=== PATIENT | male | born 2000 | race Caucasian/White ===

== ENCOUNTER 2020-04-19 17:45 | Outpatient (REF) | payer MEDICAID, SELFPAY | END 2020-04-19 17:46 | disposition home or self-care (01) | LOC: HO.LAB 17:45 | PROVIDERS: Visit Provider Internal Medicine | DX: Z20.828 Contact with and (suspected) exposure to other viral communicable diseases (principal) | CPT/HCPCS: C9803; U0003 ==

== ENCOUNTER 2020-06-28 12:12 | Outpatient (REF) | payer MEDICAID, SELFPAY | END 2020-06-28 12:13 | disposition home or self-care (01) | LOC: HO.LAB 12:12 | PROVIDERS: Visit Provider Internal Medicine | DX: Z20.822 Contact with and (suspected) exposure to COVID-19 (principal) | CPT/HCPCS: 36415; C9803; U0003 ==

== ENCOUNTER 2021-06-16 11:47 | Emergency (ER) | payer MEDICAID, SELFPAY ==
[2021-06-16 12:22] VITALS: BP 135/76; PULSE 72; RESP 18; TEMP 36.7; O2SAT 98; BMI 39.1
[2021-06-16 12:49] LABS: COVID-19 Test Negative (Negative); IDNOW Serial# 9DD0AD1C
--- NOTE | 2021-06-16 14:57 | ED.URI ---
HPI - URI/Sore Throat General Chief Complaint: Upper Respiratory Symptoms Stated Complaint: covid symptoms Time Seen by Provider: 06/16/21 14:55 Source: patient Mode of arrival: ambulatory Limitations: no limitations History of Present Illness MD elicited complaint: sore throat, nasal congestion and sinus pain Pertinent past history: other (COVID pos 06/06 2 vaccines) Onset (ago): day(s) (11 days ago) Consistency: intermittent Severity: moderate Description of mucous: clear Able to tolerate fluids by mouth: Yes Exacerbating factors: nothing Relieving factors: nothing Context: sick contacts Associated symptoms: headache and nasal congestion Treatments prior to arrival: none Related Data Previous Rx's Medication Instructions Recorded amoxicillin 875 mg-potassium 1 tab PO BID #14 tab 06/16/21 clavulanate 125 mg tablet (Augmentin) Allergies Allergy/AdvReac Type Severity Reaction Status Date / Time No Known Allergies Allergy Verified 06/16/21 12:22 Review of Systems Review of Systems: Constitutional : no Fever, positive Chills, positive fatigue, positive Malaise ENT/Mouth : positive sore throat, positive runny nose, pos nasal congestion Eyes: No Discharge Cardiovascular : No Chest Pain, No SOB Respiratory : No Cough, No Sputum Gastrointestinal : No Nausea, No Vomiting, No Diarrhea Genitourinary : No Dysuria, No Urinary Frequency Musculoskeletal : positive Myalgia Skin : No rash Neuro : No Headache PMFSH Past Medical History Medical History Asthma COVID-19 Social History Social History (Updated 06/16/21 @ 15:08 by Sue Arenas DO) Patient Tobacco Use Status: Never used Tobacco Physical Exam Vital Signs: Vital Signs: Last Vital Signs Temp 98.0 F 06/16/21 12:22 Pulse 72 06/16/21 12:22 Resp 18 06/16/21 12:22 BP 135/76 06/16/21 12:22 Pulse Ox 98 06/16/21 12:22 BMI result Body Mass Index 39.1 Appearance: Alert. Oriented X3. No acute distress. Eyes: Pupils equal, round and reactive to light. ENT: Pharynx normal. TTP bilateral max sinus ttp Neck: Normal inspection. Neck supple. CVS: Normal heart rate and rhythm. Pulses normal. Respiratory: No respiratory distress. Breath sounds normal. Abdomen: Soft and nontender. Skin: Skin warm and dry. Normal skin color. Normal skin turgor. Extremities: No lower extremity edema. No calf ttp Neuro: Oriented X 3. No motor deficit. No sensory deficit. MDM - URI/Sore Throat MDM Narrative Medical decision making narrative: 21 yo male 2 vaccines asthma hx 06/06 positive c/o today feeling nasal congestion at this time he is not toxic clear lungs likely residual sinusitis - will start on augmentin. Otherwise clear from COVID and symptoms resolved. Lab Data Labs: Lab Results 06/16/21 Range/Units 12:26 COVID-19 ([facility]) Negative (Negative) COVID-19 Clin Com See Note Discharge Plan Discharge Clinical Impression: Sinusitis Qualifiers: Sinusitis location: maxillary Chronicity: acute Recurrence: non-recurrent Qualified Code(s): J01.00 - Acute maxillary sinusitis, unspecified Patient Disposition: Home, Self-Care Instructions: Sinusitis (ED) Additional Instructions: return to ED for any worsening symptoms or concerns COVID TEST negative Prescriptions: New amoxicillin-pot clavulanate [Augmentin] 875-125 mg tablet 1 tab PO BID Qty: 14 RF: 0
--- NOTE | 2021-06-16 15:03 | PC.NURSE ---
evaluated by md simpson.
== END 2021-06-16 15:22 | disposition home or self-care (01) ==
LOC: HO.ED 15:20
PROVIDERS: Emergency Provider Emergency Medicine
DX: J01.00 Acute maxillary sinusitis, unspecified (principal); Z20.822 Contact with and (suspected) exposure to COVID-19; J45.909 Unspecified asthma, uncomplicated
CPT/HCPCS: 87635; 99283

== ENCOUNTER 2021-10-25 11:14 | Emergency (ER) | payer BC, SELFPAY ==
[2021-10-25 11:18] VITALS: BP 120/87; PULSE 84; RESP 18; TEMP 36; O2SAT 100; BMI 39.1
--- NOTE | 2021-10-25 12:29 | ED_ITS ---
HPI - General Adult General Chief complaint: Back Pain/Injury Stated complaint: back pains Time Seen by Provider: 10/25/21 12:07 Source: patient Mode of arrival: ambulatory Limitations: no limitations History of Present Illness HPI narrative: 21-year-old male presents for bilateral low back pain that is chronic. Patient lifts heavy boxes at work for the last 2 months has had mid lower back pain. Describes a dull discomfort, and pain when he extends his back and stretches. No numbness or tingling his legs, no radiation of pain No trauma, patient has no fevers, no history of eye injury drug use, no saddle paresthesias, no leg weakness, no urinary retention, no incontinence of bowel or bladder Related Data Previous Rx's Medication Instructions Recorded amoxicillin 875 mg-potassium 1 tab PO BID #14 tab 06/16/21 clavulanate 125 mg tablet (Augmentin) ketorolac 10 mg tablet 10 mg PO TID 5 Days #15 tab 10/25/21 methocarbamol 750 mg tablet 750 mg PO Q8H 5 Days #15 tab 10/25/21 Allergies Allergy/AdvReac Type Severity Reaction Status Date / Time No Known Allergies Allergy Verified 06/16/21 12:22 Review of Systems Constitutional: Constitutional: Denies body ache(s), Denies chills, Denies fatigue, Denies fever(s), Denies headache(s), Denies malaise and Denies weakness Eyes: Eyes: Denies diplopia ENT: Denies vertigo, Denies dizziness, Denies otalgia, Denies headache(s), Denies mouth pain, Denies post nasal drip, Denies sinus pain, Denies sinus pressure, Denies sore throat and Denies throat swelling Cardiovascular: Cardiovascular: Denies chest pain, Denies syncope, Denies leg edema, Denies lightheadedness, Denies Loss of Consciousness, Denies palpitations and Denies dyspnea Respiratory: Respiratory: Denies chest congestion, Denies cough and Denies dyspnea Gastrointestinal: Gastrointestinal: Denies abdominal pain, Denies hematochezia, Denies constipation, Denies fecal incontinence, Denies diarrhea and Denies vomiting Genitourinary: Genitourinary: Denies urinary hesitancy and Denies urinary incontinence Musculoskeletal: Musculoskeletal: Reports back pain, Denies muscle weakness, Denies numbness and Denies tingling Neurologic: Denies confusion, Denies vertigo, Denies dizziness, Denies syncope, Denies headache(s), Denies numbness, Denies tingling and Denies weakness Psychiatric: Psychiatric: Denies anxiety, Denies confusion and Denies depre ssion Endocrine: Endocrine: Denies fatigue and Denies palpitations Allergic/Immunologic: Allergic/Immunologic: Denies throat swelling PMFSH Past Medical History Medical History Asthma COVID-19 Social History Social History (Updated 06/16/21 @ 15:08 by Sue Arenas DO) Patient Tobacco Use Status: Never used Tobacco Advance Directives: No Advance Directives Information Provided: No Physical Exam ED Vital Signs: Vital Signs - 24 hr 10/25/21 11:18 Temperature 96.8 F Pulse Rate 84 Respiratory Rate 18 Blood Pressure 120/87 Pulse Oximetry 100 BMI result Body Mass Index 39.1 Const General: No confusion Nutritional Appearance: well nourished Orientation/consciousness: No confusion Limitations: no limitations Eyes Conjunctivae: conjunctivae normal Pupils: Equal, round and reactive pupils present EOM: EOMs intact bilaterally Neck Neck: Yes full ROM, Yes no lymphadenopathy and Yes supple Resp Effort & Inspection: normal respiratory effort and able to speak in complete sentences Auscultation: clear to auscultation bilaterally, no crackles, no rales, no rhonchi and no wheezes Cardio Rate: regular rate Rhythm: regular rhythm Heart sounds: S1 normal heart sound present and S2 normal heart sound present GI Inspection: Yes normal to inspection Palpation (GI): Soft to palpation, nontender, no guarding and not rigid Percussion: Yes normal to percussion Auscultation: normal bowel sounds Back/Spine/Pelvis Cervical Spine: normal cervical lordosis, cervical ROM normal, No Cervical spine tenderness, No step off deformity and No cervical ROM abnormal Thoracic/Lumbar Spine: straight leg raise negative bilaterally, No bend over test abnormal, No paraspinal muscle tenderness, No thoraco-lumbar ROM limited, thoraco-lumbar spasm bilaterally in the mid thoracic, No thoracic spinal tenderness and No lumbar spinal tenderness Pelvis: no pain with anterior-posterior compression and no pain with lateral compression Skin General skin exam: no rashes or lesions noted Neuro General: No confusion Cranial nerves: Yes Equal, round and reactive pupils present Extrem General: Yes normal to inspection and Yes full ROM Psych Appearance: grossly normal Affect: normal affect Attitude: cooperative Thought process: Normal thought process present Course Course Course Narrative: 21-year-old male with 2 months of back pain that has been worsening in the last few days. Patient lifts heavy boxes out his job. No red flag symptoms. On exam, patient is bilateral lower extremity pulses, sensation, motor strength, DTRs. Negative straight leg raise, no vertebral point tenderness on patient's spine. Will treat with ketorolac and Flexeril, return precautions of leg weakness, saddle paresthesias, bowel or bladder incontinence, fevers Patient's questions were answered Discharge Plan Discharge Clinical Impression: Back pain Patient Disposition: Home, Self-Care Instructions: Back Pain (ED) Additional Instructions: Please take ketorolac and methocarbamol that I prescribed to her pharmacy. Please take as prescribed for the next 5 days. As soon as her back is feeling better please stretch. All warm moist towel on your back or heating pad can also be helpful. Please do not take any ibuprofen containing products when you are taking the ketorolac. Please return to the emergency room if you have leg weakness, tingling in your groin, if you are incontinent of bowel or bladder, if you have fevers, or for any other new or concerning symptoms Prescriptions: New ketorolac 10 mg tablet 10 mg PO TID 5 Days Qty: 15 0RF methocarbamol 750 mg tablet 750 mg PO Q8H 5 Days Qty: 15 0RF No Action amoxicillin-pot clavulanate [Augmentin] 875-125 mg tablet 1 tab PO BID Qty: 14 0RF
[2021-10-25] MEDS: Cyclobenzaprine HCl 10 MG TABLET PO (12:40)
[2021-10-25] MEDS: Ketorolac Tromethamine 15 MG/ML VIAL IM (12:41)
== END 2021-10-25 13:30 | disposition home or self-care (01) ==
PROVIDERS: Emergency Provider Emergency Medicine
DX: M54.50 Low back pain, unspecified (principal)
CPT/HCPCS: 96372; 99283; 99284; J1885

== ENCOUNTER 2021-11-17 05:05 | Emergency (ER) | payer BC, SELFPAY ==
[2021-11-17 05:20] VITALS: BP 131/86; PULSE 76; RESP 16; TEMP 36.4; O2SAT 95
[2021-11-17 05:22] VITALS: PULSE 76; RESP 16; TEMP 36.4; O2SAT 95; BMI 39.8
--- NOTE | 2021-11-17 05:22 | ED_ITS ---
HPI - Back Pain/Injury General Chief Complaint: Extremity Injury, Upper Stated Complaint: lower back pain Time Seen by Provider: 11/17/21 05:22 Source: patient Mode of arrival: ambulatory Limitations: no limitations History of Present Illness HPI Narrative: Patient was moving water bottles at work complaining of lower back pain since yesterday no radiation of pain no paresthesia no motor weakness history of same few months ago patient ambulatory assert not in any distress Related Data Previous Rx's Medication Instructions Recorded amoxicillin 875 mg-potassium 1 tab PO BID #14 tabs 06/16/21 clavulanate 125 mg tablet (Augmentin) ketorolac 10 mg tablet 10 mg PO TID 5 days #15 tabs 10/25/21 methocarbamol 750 mg tablet 750 mg PO Q8H 5 days #15 tabs 10/25/21 ibuprofen 600 mg tablet 600 mg PO Q6H PRN pain #20 tabs 11/17/21 Allergies Allergy/AdvReac Type Severity Reaction Status Date / Time No Known Allergies Allergy Verified 06/16/21 12:22 Review of Systems Review of Systems: Yes all other systems are reviewed and are negative COUNT INCLUDES [facility] Past Medical History Medical History Asthma COVID-19 Social History Social History Patient Tobacco Use Status: Never used Tobacco Advance Directives: No Advance Directives Information Provided: No Physical Exam Vital Signs: Vital Signs: Last Vital Signs Temp 97.6 F 11/17/21 05:22 Pulse 76 11/17/21 05:22 Resp 16 11/17/21 05:22 BP 131/86 11/17/21 05:20 Pulse Ox 95 11/17/21 05:22 O2 Del Method 11/17/21 05:22 BMI result Body Mass Index 39.8 Const: General: comfortable and no acute distress Orientation/consciousness: patient oriented x3 HEENT: Head: Yes normal to inspection and Yes normocephalic Mouth: Normal oral and palatal mucosa present Resp: Effort & Inspection: normal respiratory effort Auscultation: clear to auscultation bilaterally Cardio: Rate: regular rate Rhythm: regular rhythm Heart sounds: S1 normal heart sound present and S2 normal heart sound present Back/Spine/Pelvis: Thoracic/Lumbar Spine: thoracic and lumbar spine normal to inspection, straight leg raise negative bilaterally, thoraco-lumbar spasm, No thoracic spinal tenderness and No lumbar spinal tenderness Neuro: General: patient oriented x3, gait normal and moves all extremities Discharge Plan Discharge Clinical Impression: Low back strain Patient Disposition: Home, Self-Care Instructions: Acute Low Back Pain (ED) Additional Instructions: Rest, ice, Ibuprofen for pain Prescriptions: New ibuprofen 600 mg tablet 600 mg PO Q6H PRN (Reason: pain) Qty: 20 0RF No Action amoxicillin-pot clavulanate [Augmentin] 875-125 mg tablet 1 tab PO BID Qty: 14 0RF ketorolac 10 mg tablet 10 mg PO TID 5 Days Qty: 15 0RF methocarbamol 750 mg tablet 750 mg PO Q8H 5 Days Qty: 15 0RF Stand Alone Forms: Work/School Release
[2021-11-17] MEDS: Ibuprofen 600 MG TABLET PO (05:58)
== END 2021-11-17 06:01 | disposition home or self-care (01) ==
PROVIDERS: Emergency Provider Internal Medicine
DX: S39.012A Strain of muscle, fascia and tendon of lower back, initial encounter (principal); J45.909 Unspecified asthma, uncomplicated; X50.9XXA Other and unspecified overexertion or strenuous movements or postures, initial encounter; Y93.9 Activity, unspecified; Y92.9 Unspecified place or not applicable; Y99.0 Civilian activity done for income or pay
CPT/HCPCS: 99283

== ENCOUNTER 2022-06-08 09:30 | Emergency (ER) | payer BC, SELFPAY ==
--- NOTE | ~2022-06-08 | XR_ITS ---
EXAMINATION: XR CHEST CLINICAL INFORMATION: Productive cough COMPARISON: Previous chest x-ray April 2015 TECHNIQUE: Frontal view of the chest was obtained. FINDINGS: No significant abnormality is noted involving the heart, lungs, mediastinum, bony thorax or soft tissues. XR/XR chest 1V IMPRESSION: Unremarkable examination.
[2022-06-08 09:32] VITALS: BP 140/90; PULSE 81; RESP 20; TEMP 36.7; O2SAT 98; BMI 39.9
--- NOTE | 2022-06-08 10:21 | ED.HA ---
HPI - Headache General Chief Complaint: Headache Stated Complaint: Migraine Time Seen by Provider: 06/08/22 10:21 Source: patient Mode of arrival: ambulatory History of Present Illness HPI Narrative: 22-year-old male with a past medical history of asthma presenting to the ED complaining of migraine headache x5 days with associated nasal congestion, rhinorrhea, and productive cough. Headache not maximal at onset. Admits daughter with recent fever. Denies known fever, ear pain, sore throat, SOB/CP, N/V, recent travel, vision change/loss, numbness/tingling, weakness MD elicited complaint: migraine Onset (ago): day(s) Related Data Previous Rx's Medication Instructions Recorded amoxicillin 875 mg-potassium 1 tab PO BID #14 tabs 06/16/21 clavulanate 125 mg tablet (Augmentin) ketorolac 10 mg tablet 10 mg PO TID 5 days #15 tabs 10/25/21 methocarbamol 750 mg tablet 750 mg PO Q8H 5 days #15 tabs 10/25/21 ibuprofen 600 mg tablet 600 mg PO Q6H PRN pain #20 tabs 11/17/21 ohugvqomme-unenewexbxwgn-jbmvblle 1 cap PO Q4-6H PRN headache #14 06/08/22 50 mg-300 mg-40 mg capsule caps (Fioricet) Allergies Allergy/AdvReac Type Severity Reaction Status Date / Time No Known Allergies Allergy Verified 06/16/21 12:22 Review of Systems Review of Systems: Constitutional: No Fever, No Chills, No Fatigue, No Malaise ENT/Mouth: No Ear Pain, + Nasal Congestion, No sore throat, + Rhinorrhea, No Swallowing Difficulty Eyes: No Eye Pain, No Swelling, No Redness, No Discharge, No Vision Changes Cardiovascular: No Chest Pain, No SOB, No Edema, No Palpitations Respiratory: + Cough, + Sputum, No Dyspnea Gastrointestinal: No Nausea, No Vomiting, No Diarrhea, No Constipation, No Abdominal pain Musculoskeletal: No joint pain, No Myalgias, No Joint Swelling Skin: No Skin Lesions, No rash Neuro: No Weakness, No Numbness, No Paresthesias, No Loss of Consciousness, No Dizziness, + Headache Yes all other systems are reviewed and are negative Constitutional: Constitutional: Reports as per HPI Neurologic: Denies Abnormal speech present [facility] Past Medical History Attestation statement: The following information was validated with the patient. Medical History Asthma COVID-19 Social History Social History Patient Tobacco Use Status: Never used Tobacco Advance Directives: No Advance Directives Information Provided: No Physical Exam Vital Signs: Vital Signs: Last Vital Signs Temp 98.0 F 06/08/22 09:32 Pulse 81 06/08/22 09:32 Resp 20 06/08/22 09:32 BP 140/90 H 06/08/22 09:32 Pulse Ox 98 06/08/22 09:32 O2 Del Method 06/08/22 09:32 BMI result Body Mass Index 39.9 Const: General: cooperative, healthy appearing and no acute distress Orientation/consciousness: patient oriented x3 Limitations: no limitations HEENT: Head: Yes normal to inspection and Yes atraumatic Ears: hearing grossly normal bilaterally, TM's normal bilaterally and mastoids normal General nose exam: Normal external nose present Face and sinus: Yes normal facial exam Throat: Yes posterior oropharynx normal, Yes tonsils normal, Yes uvula midline, No peritonsillar mass and No uvula laterally displaced Eyes: General: appearance normal, both eyes and all related structures Pupils: Equal, round and reactive pupils present EOM: EOMs intact bilaterally Neck: Neck: Yes normal visual inspection and Yes no meningeal signs Resp: Effort & Inspection: normal respiratory effort and no respiratory distress Auscultation: clear to auscultation bilaterally, no crackles, no rales and no rhonchi Cardio: Rate: regular rate Heart sounds: S1 normal heart sound present and S2 normal heart sound present GI: Inspection: Yes normal to inspection Skin: Rashes: no rashes Wounds: no wounds Neuro: General: patient oriented x3, gait normal, tone normal, moves all extremities, no meningeal signs, no focal motor deficits and CN's II-XI intact bilaterally Cranial nerves: Yes CN's II-XII intact bilaterally and Yes Equal, round and reactive pupils present Cognition (Neuro): normal cognition Speech: No Abnormal speech present Gait exam (Neuro): Normal gait present Motor exam (neuro): 5/5 motor strength present throughout and Pronator motor function not present Extrem: General: Yes normal to inspection Course Course Course Narrative: -COVID-19 and influenza negative -chest x-ray unremarkable. On re-evaluation patient reports symptomatic improvement. Results discussed with patient including worrisome signs and symptoms and strict return precautions, and when to return to the emergency department. They verbalized understanding and feel safe for discharge at this time. Medications Administered Discontinued Medications Generic Name Dose Route Start Last Admin Trade Name Claudia PRN Reason Stop Dose Admin Acetaminophen/Butalbital/Caffeine 1 tab 06/08/22 10:25 06/08/22 11:21 Butalb/Acetamin/Caff 50/325/40 Tablet PO 06/08/22 10:26 1 tab ONCE ONE Administration Ibuprofen 600 mg 06/08/22 10:25 06/08/22 11:21 Ibuprofen 600 Mg Tablet PO 06/08/22 10:26 600 mg ONCE ONE Administration Medical Decision Making Medical Decision Making MDM Narrative: 22-year-old male with a past medical history of asthma presenting to the ED complaining of migraine headache x5 days with associated nasal congestion, rhinorrhea, and productive cough. On exam VSS, NAD, nontoxic appearing, lungs CTA, no focal neuro deficits, ambulating with steady gait. Concern for viral illness vs migraine headache. Rule out pneumonia. Low suspicion for ICH/CVT or meningitis/encephalitis Plan: [id number] testing, CXR, Po Fioricet & Motrin, re-evaluate Please refer to course for remaining clinical decision making, interpretation of labs/imaging results, and discussions with consultants and/or family members. Differential Diagnosis Differential Diagnoses: The differential diagnosis associated with the presentation includes as above Lab Data Labs: Lab Results 06/08/22 06/08/22 Range/Units 10:47 10:47 COVID-19 ([facility]) Negative (Negative) COVID-19 Clin Com See Note Influenza Type A (J[facility]) Negative (Negative) Influenza Type B (JIAN) Negative (Negative) Influenza A & B Note See Note Discharge Plan Discharge Clinical Impression: Migraine Patient Disposition: Home, Self-Care Instructions: Migraine Headache (ED) Additional Instructions: You tested negative for COVID in the flu. Her x-ray was unremarkable. Continue home prescribed medications. Fioricet is a headache medication, please take as needed Be aware this medication as Tylenol mixed in, do not exceed 4 g of Tylenol in 1 day. You may also take Motrin. If symptoms persist or worsen you develop fever, persistent or worsening headache, weakness, shortness breath or chest pain return to the emergency department Prescriptions: New phuhwqjtep-aibheovjedulx-lqcc [Fioricet] 50-300-40 mg capsule 1 cap PO Q4-6H PRN (Reason: headache) Qty: 14 0RF No Action amoxicillin-pot clavulanate [Augmentin] 875-125 mg tablet 1 tab PO BID Qty: 14 0RF ketorolac 10 mg tablet 10 mg PO TID 5 Days Qty: 15 0RF methocarbamol 750 mg tablet 750 mg PO Q8H 5 Days Qty: 15 0RF ibuprofen 600 mg tablet 600 mg PO Q6H PRN (Reason: pain) Qty: 20 0RF Referrals: [place],[facility] [Primary Care Provider] - 5 days Stand Alone Forms: Work/School Release
[2022-06-08 11:11] LABS: COVID-19 Test Negative (Negative); IDNOW Serial# 16C4AD1C; IDNOW Serial# BCCEAD1C; Influenza A Negative (Negative); Influenza B2 Negative (Negative)
[2022-06-08] MEDS: Ibuprofen 600 MG TABLET PO (11:21)
[2022-06-08] MEDS: Butalb/Acetamin/Caff 50/325/40 TABLET 1 TAB PO (11:21)
== END 2022-06-08 12:28 | disposition home or self-care (01) ==
PROVIDERS: Physician Assistant; Emergency Provider Student in an Organized Health Care Education/Training Program
DX: G43.909 Migraine, unspecified, not intractable, without status migrainosus (principal); R06.02 Shortness of breath; Z20.822 Contact with and (suspected) exposure to COVID-19; Z79.899 Other long term (current) drug therapy
CPT/HCPCS: 71045; 87502; 87635; 99283

== ENCOUNTER 2022-10-30 05:00 | Emergency (ER) | payer BC, SELFPAY ==
[2022-10-30 05:08] VITALS: BP 136/88; PULSE 98; RESP 20; TEMP 36.6; O2SAT 96; BMI 38.0
[2022-10-30 05:23] LABS: Basophils Percent Auto 0.3 % (0-2); Eosinophils Absolute Auto 0.2 X10*3/uL (0.0-0.4); Eosinophils Percent Auto 3.4 % (0-4); Hematocrit 46.4 % (42.0-52.0); Hemoglobin 14.8 g/dl (14.0-18.0); Imm Gran Abs Auto 0.02 X10*3/uL (0.00-0.03); Imm Gran Pct Auto 0.3 % (0.0-0.4); Lymphocytes Absolute Auto 1.2 X10*3/uL (1.2-4.9); Lymphocytes Percent Auto 16.4 % (20-40); MANUAL DIFF FLAG NO; Mean Corpuscular HGB Conc 31.9 g/dl (31.0-36.0); Mean Corpuscular Hemoglobin 25.7 pg (27.0-33.0); Mean Corpuscular Volume 80.6 fL (80.0-98.0); Mean Platelet Volume 9.5 fL (9.4-12.4); Monocytes Absolute Auto 0.6 X10*3/uL (0.1-1.2); Monocytes Percent Auto 8.3 % (2-11); Neutrophils Percent Auto 71.3 % (45-73); Platelet Count 275 X10*3/uL (160-400); Red Blood Count 5.76 X10*6/uL (4.60-5.80); Red Cell Distribution Width 12.8 % (11.0-16.0); White Blood Count 7.1 X10*3/uL (4.8-10.8)
[2022-10-30 05:43] LABS: Alanine Aminotransferase 26 U/L (0-40); Albumin Level 4.7 g/dL (3.5-5.0); Alkaline Phosphatase 79 U/L (39-117); Anion Gap 14 (12-20); Aspartate Amino Transferase 20 U/L (5-37); Bilirubin Direct 0.5 mg/dL (0.0-0.5); Bilirubin Total 2.3 mg/dL (0.0-1.0); Blood Urea Nitrogen 13 mg/dL (9-16); Calcium 9.5 mg/dL (8.4-10.2); Carbon Dioxide 18 mmol/L (22-29); Chloride 109 mmol/L (96-108); Creatinine Clr Calc Pharmacy 164.6; Estimated Glomerular Filt Rate > 60; Glucose Random 107 mg/dL (60-115); Lipase 12 U/L (8-78); Potassium 3.9 mmol/L (3.3-5.1); Sodium 137 mmol/L (135-145); Total Protein 7.7 g/dL (6.5-8.0)
--- NOTE | 2022-10-30 07:03 | ED_ITS ---
HPI - General Adult General Chief complaint: Nausea/Vomiting/Diarrhea Stated complaint: Nausea, headaches sore muscles Time Seen by Provider: 10/30/22 07:02 Source: patient Mode of arrival: ambulatory Limitations: no limitations History of Present Illness HPI narrative: Patient is a 22-year-old male with no past medical history presenting to the emergency department with nausea, vomiting, and diarrhea since yesterday morning. He reports that his partner at home is sick with the same symptoms. He reports approximately 4 episodes of diarrhea per hour yesterday. He states that he was able to tolerate fluids this morning without vomiting. He denies any fevers. He reports generalized abdominal discomfort but denies any abdominal, back, or flank pain. He reports non-bloody, non-bilious emesis, denies coffee ground emesis, hematochezia or melena. He denies any prior abdominal surgeries. He denies chest pain or dyspnea. Denies headache. Denies dizziness, lightheadedness, syncope. Denies recent travel. Denies any new medications. Denies any dysuria, hematuria, or other urinary complaints. MD complaint: nausea, vomiting, diarrhea Onset (ago): day(s) Relieving factors: none Treatments prior to arrival: none Related Data Previous Rx's Medication Instructions Recorded amoxicillin 875 mg-potassium 1 tab PO BID #14 tabs 06/16/21 clavulanate 125 mg tablet (Augmentin) ketorolac 10 mg tablet 10 mg PO TID 5 days #15 tabs 10/25/21 methocarbamol 750 mg tablet 750 mg PO Q8H 5 days #15 tabs 10/25/21 ibuprofen 600 mg tablet 600 mg PO Q6H PRN pain #20 tabs 11/17/21 [id number]-[id number]-[id number] 1 cap PO Q4-6H PRN headache #14 06/08/22 50 mg-300 mg-40 mg capsule caps (Fioricet) ondansetron 4 mg disintegrating 4 mg PO Q8H PRN nausea and 10/30/22 tablet vomiting #12 tabs Allergies Allergy/AdvReac Type Severity Reaction Status Date / Time No Known Allergies Allergy Verified 10/30/22 05:11 Review of Systems Review of Systems: Yes all other systems are reviewed and are negative Constitutional: Constitutional: Reports as per HPI, Denies body ache(s), Denies chills, Denies excessive sweating, Denies fever(s) and Denies headache(s) Eyes: Eyes: Reports no additional eye complaints ENT: Reports system reviewed and no additional complaints, except as documented and Denies headache(s) Cardiovascular: Cardiovascular: Reports no additional cardiovascular complaints Respiratory: Respiratory: Reports no additional respiratory complaints Gastrointestinal: Gastrointestinal: Denies abdominal pain, Denies melena, Denies hematochezia, Denies coffee ground emesis, Denies constipation, Denies fecal incontinence, Reports diarrhea, Reports nausea, Reports vomiting and Denies hematemesis Genitourinary: Genitourinary: Reports no additional male genitourinary complaints Musculoskeletal: Musculoskeletal: Reports no additional musculoskeletal complaints Integumentary/Breasts: Skin/Breast: Reports system reviewed and no additional complaints, except as docu Neurologic: Reports system reviewed and no additional complaints, except as documented and Denies headache(s) Psychiatric: Psychiatric: Reports no additional psychiatric complaints Endocrine: Endocrine: Denies excessive sweating Hematologic/Lymphatic: Hematologic/Lymphatic: Reports no additional hematologic/lymphatic complaints Allergic/Immunologic: Allergic/Immunologic: Reports no additional allergic/immunologic complaints [facility] Past Medical History Medical History Asthma COVID-19 Social History Social History Alcohol intake: never Patient Tobacco Use Status: Never used Tobacco Smoked in Last 30 Days: No Use of substances other than those prescribed or required for medical reasons: No Advance Directives: No Advance Directives Information Provided: Yes Physical Exam ED Vital Signs: Vital Signs - 24 hr 10/30/22 05:08 10/30/22 07:12 Temperature 97.8 F 98.6 F Pulse Rate 98 90 Respiratory Rate 20 17 Blood Pressure 136/88 127/82 Pulse Oximetry 96 95 Oxygen Delivery Method Room Air Room Air BMI result Body Mass Index 38.0 Vital signs have been reviewed and appear to be correct. Blood pressure normal. Heart rate normal. Respiratory rate normal. Temperature normal. Oxygen saturation normal. Const General: cooperative, healthy appearing and no acute distress Orientation/consciousness: oriented to person, oriented to place, oriented to time and patient oriented x3 Limitations: no limitations HENMT Head: Yes normocephalic and Yes atraumatic Ears: external ears normal General nose exam: Normal external nose present Face and sinus: Yes face symmetric Mouth: Normal oral and palatal mucosa present, oropharynx normal and moist mucous membranes Throat: Yes uvula midline Eyes Pupils: Equal, round and reactive pupils present Neck Neck: Yes normal visual inspection and Yes supple Resp Effort & Inspection: normal respiratory effort and able to speak in complete sentences Auscultation: clear to auscultation bilaterally Cardio Rate: regular rate Rhythm: regular rhythm Heart sounds: S1 normal heart sound present and S2 normal heart sound present GI Inspection: Yes normal to inspection Palpation (GI): Soft to palpation, nontender, no guarding, hepatosplenomegaly present, no hernias, no masses and No Rebound tenderness present Auscultation: normoactive bowel sounds General: Yes no CVA tenderness Back/Spine/Pelvis Back: no CVA tenderness Skin General skin exam: elasticity normal and turgor normal Neuro General: oriented to person, oriented to place, oriented to time, patient oriented x3, moves all extremities, no focal motor deficits and CN's II-XI intact bilaterally Cranial nerves: Yes Equal, round and reactive pupils present Cognition (Neuro): normal cognition Extrem General: Yes full ROM, Yes no pedal edema and Yes no calf tenderness Psych Mental Status: mental status grossly normal Affect: normal affect Thought process: Normal thought process present Medications Administered Discontinued Medications Generic Name Dose Route Start Last Admin Trade Name Claudia PRN Reason Stop Dose Admin Ondansetron HCl 4 mg 10/30/22 07:18 10/30/22 07:22 Ondansetron Odt 4 Mg Tab.Rapdis TRANSLINGU 10/30/22 07:19 4 mg ONCE ONE Administration Medical Decision Making Medical Decision Making [facility] Narrative: Patient is a 22-year-old male with no past medical history presenting to the emergency department with nausea, vomiting, and diarrhea since yesterday constantin de. On exam patient is nontoxic appearing, awake, A+Ox3, VS WNL, normal neurological exam without focal deficits, moist mucous membranes, abdomen is soft and nontender without guarding or rebound tenderness, no CVA tenderness. Renal function WNL. Likely viral gastroenteritis as partner at home is sick with similar symptoms. Unlikely ACS, bowel obstruction, diverticulitis, viscous perforation, appendicitis, acute cholecystitis. No evidence of surgical abdomen or other acute emergent conditions. No indication for abdominal imaging at this time. Will obtain UA, treat nausea, and likely discharge home. 08:11 No evidence of UTI on UA, reports improvement in nausea with Zofran. Feel patient is stable for discharge home on ondansetron, progress diet with clear fluids, then bland diet. Return precautions discussed at bedside. Differential Diagnosis Differential Diagnoses: The differential diagnosis associated with the presen tation includes As above. Admission/Observation Consideration of admission/observation: Escalation of care including admission/ observation considered Lab Data MDM Lab Attestation statement: I reviewed the patient's lab results. 10/30/22 05:19 10/30/22 05:19 Labs: Lab Results 10/30/22 10/30/22 10/30/22 Range/Units 05:19 05:19 07:38 WBC 7.1 (4.8-10.8) X10*3/uL RBC 5.76 (4.60-5.80) X10*6/uL Hgb 14.8 (14.0-18.0) g/dl Hct 46.4 (42.0-52.0) % MCV 80.6 (80.0-98.0) fL MCH 25.7 L (27.0-33.0) pg MCHC 31.9 (31.0-36.0) g/dl RDW 12.8 (11.0-16.0) % Plt Count 275 (160-400) X10*3/uL MPV 9.5 (9.4-12.4) fL Immature Gran % (Auto) 0.3 (0.0-0.4) % Neut % (Auto) 71.3 (45-73) % Lymph % (Auto) 16.4 L (20-40) % [place] % (Auto) 8.3 (2-11) % Eos % (Auto) 3.4 (0-4) % Baso % (Auto) 0.3 (0-2) % Lymph # (Auto) 1.2 (1.2-4.9) X10*3/uL [place] # (Auto) 0.6 (0.1-1.2) X10*3/uL Eos # (Auto) 0.2 (0.0-0.4) X10*3/uL Baso # (Auto) 0.0 (0.0-0.2) X10*3/uL Abs Immat Gran (auto) 0.02 (0.00-0.03) X10*3/uL Absolute Neuts (auto) 5.0 (2.0-8.3) x10*3/uL Absolute Nucleated RBC 0.000 (0.0-0.012) X10*3/uL Nucleated RBC % (auto) 0.0 (0.0-0.2) /100WBC Sodium 137 (135-145) mmol/L Potassium 3.9 (3.3-5.1) mmol/L Chloride 109 H (96-108) mmol/L Carbon Dioxide 18 L (22-29) mmol/L Anion Gap 14 (12-20) BUN 13 (9-16) mg/dL Creatinine 0.86 (0.5-1.4) mg/dL Estim Creat Clear Calc 164.6 Estimated GFR > 60 Random Glucose 107 (60-115) mg/dL Calcium 9.5 (8.4-10.2) mg/dL Total Bilirubin 2.3 H (0.0-1.0) mg/dL Direct Bilirubin 0.5 (0.0-0.5) mg/dL AST 20 (5-37) U/L ALT 26 (0-40) U/L Alkaline Phosphatase 79 (39-117) U/L Total Protein 7.7 (6.5-8.0) g/dL Albumin 4.7 (3.5-5.0) g/dL Lipase 12 (8-78) U/L Urine Color Yellow Urine Appearance Clear Urine pH 5.5 (5.0-9.0) Ur Specific [place] >= 1.030 H (1.005-1.025) Urine Protein Trace (Neg-Trace) mg/dL Urine Glucose (UA) Negative (Negative) mg/dL Urine Ketones Negative (Negative) mg/dL Urine Blood Small (1+) H (Negative) Urine Nitrite Negative (Negative) Ur Leukocyte Esterase Negative (Negative) Urine RBC 6-10 H (0-2) /HPF Urine WBC 0-5 (0-5) /HPF Ur Squamous Epith Cells 0-2 (0-2) /HPF Urine Bacteria None Seen (None Seen) Hyaline Casts 3-5 (0-2) /LPF External Record Review External record reviewed: Inpatient record, Office record and Outpatient record Prescription Management I considered prescription management with: Other (antiemetic) Discharge Plan Discharge Clinical Impression: Gastroenteritis Patient Disposition: Home, Self-Care Instructions: Diet for Stomach Ulcers and Gastritis (ED), Gastroenteritis (DC), Acute Nausea and Vomiting (ED), Acute Diarrhea (ED) Additional Instructions: You have been evaluated in the emergency department today for nausea, vomiting, and diarrhea. Your evaluation suggests that your symptoms are most likely due to a viral illness which will improve on it's own with rest and fluids. Remember to drink plenty of fluids at home. You are being prescribed ondansetron which you can use as per the prescription instructions for nausea. Begin with clear fluids then progress to a bland diet as tolerated, then normal diet as tolerated. Please follow up with your primary care provider within two days. Return to the emergency department if you experience worsening or uncontrolled pain, inability to tolerate fluids by mouth, difficulty breathing, fevers 100.4? F or greater, recurrent vomiting, or any other concerning symptoms. Prescriptions: New ondansetron 4 mg tablet,disintegrating 4 mg PO Q8H PRN (Reason: nausea and vomiting) Qty: 12 0RF No Action amoxicillin-pot clavulanate [Augmentin] 875-125 mg tablet 1 tab PO BID Qty: 14 0RF ketorolac 10 mg tablet 10 mg PO TID 5 Days Qty: 15 0RF methocarbamol 750 mg tablet 750 mg PO Q8H 5 Days Qty: 15 0RF ibuprofen 600 mg tablet 600 mg PO Q6H PRN (Reason: pain) Qty: 20 0RF [id number] [Fioricet] 50-300-40 mg capsule 1 cap PO Q4-6H PRN (Reason: headache) Qty: 14 0RF Stand Alone Forms: Work/School Release
[2022-10-30 07:12] VITALS: BP 127/82; PULSE 90; RESP 17; TEMP 37; O2SAT 95
[2022-10-30] MEDS: Ondansetron ODT 4 MG TAB.RAPDIS TRANSLINGU (07:22)
[2022-10-30 07:53] LABS: Appearance Urine Clear; Color Urine Yellow; Glucose Urine UA Negative (Negative); Leukocyte Esterase Urine Negative (Negative); Nitrite Urine Negative (Negative); PH 5.5 (5.0-9.0); Specific Gravity - Urine >= 1.030 (1.005-1.025); UMIC TRIGGER UACC YES; Urine Blood Small (1+) (Negative); Urine Ketones Negative (Negative); Urine Protein Trace mg/dL (Neg-Trace)
[2022-10-30 07:58] LABS: Bacteria Urine None Seen (None Seen); Squamous Epithelial Cell Urine 0-2 /HPF (0-2); WBC Urine 0-5 /HPF (0-5)
== END 2022-10-30 08:30 | disposition home or self-care (01) ==
PROVIDERS: Emergency Provider Emergency Medicine Emergency Medical Services
DX: K52.9 Noninfective gastroenteritis and colitis, unspecified (principal); R11.2 Nausea with vomiting, unspecified; R11.10 Vomiting, unspecified; R51.9 Headache, unspecified; M79.10 Myalgia, unspecified site
CPT/HCPCS: 36415; 80048; 80076; 81001; 83690; 85025; 99283; 99284